=== PATIENT | female | born 1965 | race Caucasian/White ===

== ENCOUNTER 2017-11-30 20:07 | Emergency (ER) | payer MEDICARE, OTHER ==
[2017-11-30] MEDS ORDERED: Ketorolac 60 MG/2 ML SDV IM ONE (20:36)
--- NOTE | 2017-11-30 20:40 | EDM.PDOC ---
ED HPI GENERAL MEDICAL PROBLEM - General Chief Complaint: Back Pain or Injury Stated Complaint: LOWER BACK PAIN Time Seen by Provider: 11/30/17 20:20 Source of Information: Reports: Patient History Limitations: Reports: No Limitations - History of Present Illness INITIAL COMMENTS - FREE TEXT/NARRATIVE: HISTORY AND PHYSICAL: History of present illness: Patient is a 52-year-old female is brought to the emergency room today with complaints of low back pain that radiates down the left lower extremity. She has a long-standing history of chronic back pain which she normally takes [place] for. She does have surgery pending in February 2018. Recently she has been traveling with her who is a diesel truck driver. They are from [place] and up here for work. He has been is doing a "long haul" which will last approximately 3 weeks, before they return to [place]. Patient states that she recently found out her pain management clinic closed. She does have an appointment for December to establish care with a new pain management provider. She denies any new injury, trauma or symptoms. Denies any dysuria or change in bowel pattern. Review of systems: As per history of present illness and below otherwise all systems reviewed and negative. Past medical history: As per history of present illness and as reviewed below otherwise noncontributory. Surgical history: As per history of present illness and as reviewed below otherwise noncontributory. Social history: No reported history of drug or alcohol abuse. Family history: As per history of present illness and as reviewed below otherwise noncontributory. Physical exam: General: Well-developed and well-nourished 52-year-old female. Alert and oriented. Nontoxic appearing and in no acute distress. HEENT: Atraumatic, normocephalic, pupils equal and reactive bilaterally, negative for conjunctival pallor or scleral icterus, mucous membranes moist, throat clear, neck supple, nontender, trachea midline. No drooling or trismus noted. No meningeal signs Lungs: Clear to auscultation, breath sounds equal bilaterally, chest nontender. Heart: S1S2, regular rate and rhythm without overt murmur Abdomen: Soft, nondistended, nontender. Negative for masses or hepatosplenomegaly. Negative for costovertebral tenderness. Pelvis: Stable nontender. Genitourinary: Deferred. Rectal: Deferred. C-spine/Back: No pinpoint vertebral tenderness upon palpation. She denies any urinary or fecal incontinence. Denies any numbness or tingling to her distal extremities. Patient is fully ambulatory without any difficulty or deficits. Skin: Intact, warm, dry. No lesions or rashes noted. Extremities: Atraumatic, moves all extremities per self, negative for cords or calf pain. Neurovascular unremarkable. Neuro: Awake, alert, oriented. Cranial nerves II through XII unremarkable. Cerebellum unremarkable. Motor and sensory unremarkable throughout. Exam nonfocal. Notes: Upon discussing with patient the options of doing diagnostics today she has a copy of recent MRI and discharge instructions from previous clinic visits. Patient does appear credible and has information with her that this from a clinic in [place]. She declines any imaging or lab work today as her symptoms are chronic and have not changed. He discussed muscle relaxer versus what she has been using which is [place]. She is aware and understands that only a limited amount of pain medication may be given through the emergency department. We will give [place] 5/325, dispensed #30, no refill. Voices understanding and is agreeable to Plan of care. Denies any further questions at this time. Diagnostics: Declines Therapeutics: Norflex and Toradol IM Impression: Chronic low back pain Plan: 1. Please take your medication as prescribed. 2. Tylenol and/or ibuprofen as needed for breakthrough pain. 3. For further medication refills please establish care with our primary care clinic. The phone number has been listed for you. Return to the ED as needed and as discussed. Definitive disposition and diagnosis as appropriate pending reevaluation and review of above. Duration: Chronic Location: Reports: Back lower back/right leg Pain Score (Numeric/FACES): 4 - Related Data Allergies Allergy/AdvReac Type Severity Reaction Status Date / Time chlorzoxazone Allergy Swelling Verified 11/30/17 20:27 [From Parafon Forte] Home Meds: Home Meds . 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 Neurological History: Reports: None Psychiatric History: Reports: Bipolar Endocrine/Metabolic History: Reports: Diabetes, Type II Dermatologic History: Reports: None - Infectious Disease History Infectious Disease History: Reports: Chicken Pox, Measles, Mumps - Past Surgical History HEENT Surgical History: Reports: None GI Surgical History: Reports: Appendectomy, Cholecystectomy Female Surgical History: Reports: Tubal Ligation Social & Family History - Tobacco Use Smoking Status *Q: Current Every Day Smoker Years of Tobacco use: 30 Packs/Tins Daily: 1 - Recreational Drug Use Recreational Drug Use: No ED ROS GENERAL - Review of Systems Review Of Systems: ROS reveals no pertinent complaints other than HPI. ED EXAM,LOWER BACK PAIN/INJURY - Physical Exam Exam: See Below (See dictation) Course - Vital Signs Last Recorded V/S: Last Vital Signs Temp 97.1 F 11/30/17 20:27 Pulse 97 11/30/17 20:27 Resp 18 11/30/17 20:27 BP 136/71 11/30/17 20:27 Pulse Ox 96 11/30/17 20:27 - Orders/Labs/Meds Orders: Active Orders 24 hr Category Date Time Status Orphenadrine [Norflex] Med 11/30/17 20:45 Ordered 60 mg IM Q12H Medication Orders Orphenadrine Citrate (Norflex) 60 mg IM Q12H BRANDIE Meds: Medications Generic Name Dose Route Start Last Admin Trade Name Freq PRN Reason Stop Dose Admin Orphenadrine Citrate 60 mg 11/30/17 20:45 Norflex IM Q12H BRANDIE Discontinued Medications Generic Name Dose Route Start Last Admin Trade Name Freq PRN Reason Stop Dose Admin Ketorolac Tromethamine 60 mg 11/30/17 20:36 Toradol IM 11/30/17 20:37 ONETIME ONE Departure - Departure Time of Disposition: 20:40 Disposition: Home, Self-Care 01 Clinical Impression: Chronic low back pain Qualifiers: Back pain laterality: midline Sciatica presence: with sciatica Sciatica laterality: sciatica of left side Qualified Code(s): M54.42 - Lumbago with sciatica, left side - Discharge Information Referrals: PCP,None [Primary Care Provider] - Forms: ED Department Discharge Additional Instructions: The following information is given to patients seen in the emergency department who are being discharged to home. This information is to outline your options for follow-up care. We provide all patients seen in our emergency department with a follow-up referral. The need for follow-up, as well as the timing and circumstances, are variable depending upon the specifics of your emergency department visit. If you don't have a primary care physician on staff, we will provide you with a referral. We always advise you to contact your personal physician following an emergency department visit to inform them of the circumstance of the visit and for follow-up with them and/or the need for any referrals to a consulting specialist. The emergency department will also refer you to a specialist when appropriate. This referral assures that you have the opportunity for follow-up care with a specialist. All of these measure are taken in an effort to provide you with optimal care, which includes your follow-up. Under all circumstances we always encourage you to contact your private physician who remains a resource for coordinating your care. When calling for follow-up care, please make the office aware that this follow-up is from your recent emergency room visit. If for any reason you are refused follow-up, please contact the [facility] Emergency Department at and asked to speak to the emergency department charge nurse. [facility] Primary Care [address] [place] [id number] 1. Please take your medication as prescribed. 2. Tylenol and/or ibuprofen as needed for breakthrough pain. 3. For further medication refills please establish care with our primary care clinic. The phone number has been listed for you. Return to the ED as needed and as discussed. - My Orders Last 24 Hours: My Active Orders 11/30/17 20:45 Orphenadrine [Norflex] 60 mg IM Q12H - Assessment/Plan Last 24 Hours: My Active Orders 11/30/17 20:45 Orphenadrine [Norflex] 60 mg IM Q12H
== END 2017-11-30 21:15 | disposition home or self-care (01) ==
LOC: MW.ED 20:07
DX: G89.29 Other chronic pain (principal); M54.5 Low back pain; E11.9 Type 2 diabetes mellitus without complications; Z88.1 Allergy status to other antibiotic agents
CPT/HCPCS: 96372; 99283; J1885; J2360

== ENCOUNTER 2017-12-04 23:06 | Observation (INO) | payer MEDICARE ==
--- NOTE | 2017-12-05 00:21 | EDM.PDOC ---
ED HPI GENERAL MEDICAL PROBLEM - General Chief Complaint: Abdominal Pain Stated Complaint: WEAK/TOOK TOO MUCH MEDICATION Time Seen by Provider: 12/05/17 00:00 - History of Present Illness INITIAL COMMENTS - FREE TEXT/NARRATIVE: HISTORY AND PHYSICAL: History of present illness: 52-year-old female presented to emergency department with chief complaint of "liver pain" 2 days with past medical history of type 2 diabetes, hyperlipidemia, neuropathy, COPD/asthma, and bipolar disorder. Patient states approximately 2 days [place] and have right upper quadrant pain that she describes as liver pain. She did have some associated nausea and chills but denies any fever, malaise, sore throat, or other signs of systemic infection. She has had both her gallbladder and appendix removed. She also has had a intermittent dry cough which she states is chronic and related to her COPD. She admits to one week of intermittent constipation which may be contributing to her abdominal pain. She denies any dysuria. Review of systems: As per history of present illness and below otherwise all systems reviewed and negative. Past medical history: As per history of present illness and as reviewed below otherwise noncontributory. Surgical history: As per history of present illness and as reviewed below otherwise noncontributory. Social history: No reported history of drug or alcohol abuse. Family history: As per history of present illness and as reviewed below otherwise noncontributory. Physical exam: HEENT: Atraumatic, normocephalic, pupils reactive, negative for conjunctival pallor or scleral icterus, mucous membranes moist, throat clear, neck supple, nontender, trachea midline. Lungs: Clear to auscultation, breath sounds equal bilaterally, chest nontender. Heart: S1S2, regular, negative for clicks, rubs, or JVD. Abdomen: Soft, nondistended, nontender. Negative for masses or hepatosplenomegaly. Negative for costovertebral tenderness. Pelvis: Stable nontender. Genitourinary: Deferred. Rectal: Deferred. Extremities: Atraumatic, negative for cords or calf pain. Neurovascular unremarkable. Neuro: Awake, alert, oriented. Cranial nerves II through XII unremarkable. Cerebellum unremarkable. Motor and sensory unremarkable throughout. Exam nonfocal. Diagnostics: CBC, CMP, UA/UC, Blood culture x2, CT abd/pelvis, CXR Therapeutics: 2 L NS IV, 2 mg IV morphine x2, 1 gram Rocephin Impression: Intractable pain Leukocytosis Plan: CBC revealed a leukocytosis 20,000. This was repeated and was still elevated and normal 17,000. CT abdomen did not reveal any acute [place] for infection but did show moderate constipation. UA, CMP, and chest x-ray were all unremarkable. Secondary to leukocytosis of unknown etiology as well as intractable pain and to call hospitalist Dr. Valiente who accepted patient for observation for leukocytosis and an intractable pain. Definitive disposition and diagnosis as appropriate pending reevaluation and review of above. right upper quadrant abdomen Pain Score (Numeric/FACES): 8 - Related Data Allergies Allergy/AdvReac Type Severity Reaction Status Date / Time chlorzoxazone Allergy Swelling Verified 12/04/17 23:15 [From Jose Daniel Perry] Home Meds: Home Meds ARIPiprazole [Abilify] 1 tab PO DAILY 12/04/17 [History] Citalopram Hydrobromide [Celexa] 1 tab PO DAILY 12/04/17 [History] Gabapentin [Gralise] 1 tab PO TID 12/04/17 [History] Gemfibrozil 1 tab PO BID 12/04/17 [History] Lisinopril 1 tab PO DAILY 12/04/17 [History] Loratadine 1 tab PO DAILY 12/04/17 [History] Montelukast [Singulair] 1 tab PO BEDTIME 12/04/17 [History] OXcarbazepine [Oxcarbazepine] 1 tab PO BID 12/04/17 [History] Pantoprazole [ProTONIX] 1 tab PO DAILY 12/04/17 [History] metFORMIN HCl [Metformin HCl] 1 tab PO BID 12/04/17 [History] tiZANidine [Zanaflex] 1 tab PO TID PRN 12/04/17 [History] Past Medical History HEENT History: Reports: None Cardiovascular History: Reports: High Cholesterol, Hypertension Respiratory History: Reports: COPD Other Musculoskeletal History: 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 Neurological History: Reports: None Psychiatric History: Reports: Bipolar, Depression Endocrine/Metabolic History: Reports: Diabetes, Type II Dermatologic History: Reports: None - Infectious Disease History Infectious Disease History: Reports: Hepatitis C - Past Surgical History HEENT Surgical History: Reports: None GI Surgical History: Reports: Appendectomy, Cholecystectomy Female Surgical History: Reports: Tubal Ligation Social & Family History - Family History Family Medical History: Noncontributory - Tobacco Use Smoking Status *Q: Current Every Day Smoker Years of Tobacco use: 30 Packs/Tins Daily: 1 - Recreational Drug Use Recreational Drug Use: No ED ROS GENERAL - Review of Systems Review Of Systems: See Below ED EXAM, GENERAL - Physical Exam Exam: See Below Course - Vital Signs Last Recorded V/S: Last Vital Signs Temp 98.8 F 12/05/17 04:30 Pulse 94 12/05/17 06:48 Resp 18 12/05/17 06:48 BP 100/50 L 12/05/17 06:48 Pulse Ox 99 12/05/17 04:30 - Orders/Labs/Meds Orders: Active Orders 24 hr Category Date Time Status Abdomen Pelvis wo Cont [CT] Stat Exams 12/05/17 01:33 Taken Chest 2V [CR] Stat Exams 12/05/17 04:41 Taken CULTURE BLOOD [BC] Stat Lab 12/05/17 01:55 Received CULTURE BLOOD [BC] Stat Lab 12/05/17 02:15 Received CULTURE URINE [RM] Stat Lab 12/05/17 00:45 Ordered UA W/MICROSCOPIC [URIN] Stat Lab 12/05/17 00:45 Ordered Sodium Chloride 0.9% [Normal Saline] 1,000 ml Med 12/05/17 05:00 Active IV STAT Blood Culture x2 Reflex Set [OM.PC] Stat Oth 12/05/17 01:33 Ordered Medication Orders Sodium Chloride (Normal Saline) 1,000 mls @ 999 mls/hr IV STAT BRANDIE Last Admin: 12/05/17 04:50 Dose: 999 mls/hr Labs: Laboratory Tests 12/05/17 12/05/17 12/05/17 Range/Units 00:45 01:05 01:05 WBC 20.85 H (4.0-11.0) K/uL RBC 4.65 (4.30-5.90) M/uL Hgb 13.3 (12.0-16.0) g/dL Hct 37.7 (36.0-46.0) % MCV 81.1 (80.0-98.0) fL MCH 28.6 (27.0-32.0) pg MCHC 35.3 (31.0-37.0) g/dL RDW Std Deviation 37.9 (28.0-62.0) fl RDW Coeff of Luis Alfredo 13 (11.0-15.0) % Plt Count 294 (150-400) K/uL MPV 9.80 (7.40-12.00) fL Neut % (Auto) 75.1 (48.0-80.0) % Lymph % (Auto) 15.9 L (16.0-40.0) % [place] % (Auto) 8.3 (0.0-15.0) % Eos % (Auto) 0.5 (0.0-7.0) % Baso % (Auto) 0.2 (0.0-1.5) % Neut # (Auto) 15.7 H (1.4-5.7) K/uL Lymph # (Auto) 3.3 H (0.6-2.4) K/uL [place] # (Auto) 1.7 H (0.0-0.8) K/uL Eos # (Auto) 0.1 (0.0-0.7) K/uL Baso # (Auto) 0.0 (0.0-0.1) K/uL Nucleated RBC % /100WBC Nucleated RBCs # K/uL Lactate (0.20-2.00) mmol/L Sodium 137 (136-145) mmol/L Potassium 4.3 (3.5-5.1) mmol/L Chloride 103 (98-107) mmol/L Carbon Dioxide 22.6 (21.0-32.0) mmol/L BUN 30 H (7.0-18.0) mg/dL Creatinine 1.1 H (0.6-1.0) mg/dL Est Cr Clr Drug Dosing 61.04 mL/min Estimated GFR (MDRD) 52.4 ml/min Glucose 200 H (74-106) mg/dL Calcium 9.1 (8.5-10.1) mg/dL Total Bilirubin 0.3 (0.2-1.0) mg/dL AST 10 L (15-37) IU/L ALT 14 (14-63) IU/L Alkaline Phosphatase 76 (46-116) U/L Total Protein 7.1 (6.4-8.2) g/dL Albumin 3.4 (3.4-5.0) g/dL Globulin 3.7 H (2.0-3.5) g/dL Albumin/Globulin Ratio 0.9 L (1.3-2.8) Urine Color YELLOW Urine Appearance CLEAR Urine pH 6.0 (5.0-8.0) Ur Specific [place] 1.010 (1.001-1.035) Urine Protein NEGATIVE (NEGATIVE) mg/dL Urine Glucose (UA) >=1000 (NEGATIVE) mg/dL Urine Ketones NEGATIVE (NEGATIVE) mg/dL Urine Occult Blood TRACE-LYSED (NEGATIVE) Urine Nitrite NEGATIVE (NEGATIVE) Urine Bilirubin NEGATIVE (NEGATIVE) Urine Urobilinogen 0.2 (<2.0) EU/dL Ur Leukocyte Esterase SMALL (NEGATIVE) Urine RBC 0-1 (0-2/HPF) Urine WBC 1-2 (0-5/HPF) Ur Epithelial Cells OCCASIONAL (NONE-FEW) Urine Bacteria RARE (NEGATIVE) 12/05/17 12/05/17 Range/Units 03:55 03:55 WBC 16.50 H (4.0-11.0) K/uL RBC 4.32 (4.30-5.90) M/uL Hgb 12.3 (12.0-16.0) g/dL Hct 35.1 L (36.0-46.0) % MCV 81.3 (80.0-98.0) fL MCH 28.5 (27.0-32.0) pg MCHC 35.0 (31.0-37.0) g/dL RDW Std Deviation 40.1 (28.0-62.0) fl RDW Coeff of Luis Alfredo 14 (11.0-15.0) % Plt Count 262 (150-400) K/uL MPV 9.50 (7.40-12.00) fL Neut % (Auto) 70.3 (48.0-80.0) % Lymph % (Auto) 20.7 (16.0-40.0) % [place] % (Auto) 8.2 (0.0-15.0) % Eos % (Auto) 0.6 (0.0-7.0) % Baso % (Auto) 0.2 (0.0-1.5) % Neut # (Auto) 11.6 H (1.4-5.7) K/uL Lymph # (Auto) 3.4 H (0.6-2.4) K/uL [place] # (Auto) 1.4 H (0.0-0.8) K/uL Eos # (Auto) 0.1 (0.0-0.7) K/uL Baso # (Auto) 0.0 (0.0-0.1) K/uL Nucleated RBC % 0.0 /100WBC Nucleated RBCs # 0 K/uL Lactate 0.5 (0.20-2.00) mmol/L Sodium (136-145) mmol/L Potassium (3.5-5.1) mmol/L Chloride (98-107) mmol/L Carbon Dioxide (21.0-32.0) mmol/L BUN (7.0-18.0) mg/dL Creatinine (0.6-1.0) mg/dL Est Cr Clr Drug Dosing mL/min Estimated GFR (MDRD) ml/min Glucose (74-106) mg/dL Calcium (8.5-10.1) mg/dL Total Bilirubin (0.2-1.0) mg/dL AST (15-37) IU/L ALT (14-63) IU/L Alkaline Phosphatase (46-116) U/L Total Protein (6.4-8.2) g/dL Albumin (3.4-5.0) g/dL Globulin (2.0-3.5) g/dL Albumin/Globulin Ratio (1.3-2.8) Urine Color Urine Appearance Urine pH (5.0-8.0) Ur Specific [place] (1.001-1.035) Urine Protein (NEGATIVE) mg/dL Urine Glucose (UA) (NEGATIVE) mg/dL Urine Ketones (NEGATIVE) mg/dL Urine Occult Blood (NEGATIVE) Urine Nitrite (NEGATIVE) Urine Bilirubin (NEGATIVE) Urine Urobilinogen (<2.0) EU/dL Ur Leukocyte Esterase (NEGATIVE) Urine RBC (0-2/HPF) Urine WBC (0-5/HPF) Ur Epithelial Cells (NONE-FEW) Urine Bacteria (NEGATIVE) Meds: Medications Generic Name Dose Route Start Last Admin Trade Name Freq PRN Reason Stop Dose Admin Sodium Chloride 1,000 mls @ 999 mls/hr 12/05/17 05:00 12/05/17 04:50 Normal Saline IV 999 mls/hr STAT BRANDIE Administration Discontinued Medications Generic Name Dose Route Start Last Admin Trade Name Freq PRN Reason Stop Dose Admin Sodium Chloride 1,000 mls @ 999 mls/hr 12/05/17 01:33 12/05/17 02:45 Normal Saline IV 12/05/17 02:33 999 mls/hr STAT ONE Administration Ceftriaxone Sodium/Dextrose 1 50 mls @ 100 mls/hr 12/05/17 01:34 12/05/17 02: 49 gm/ Premix IV 12/05/17 02:03 100 mls/hr ONETIME ONE Administration Morphine Sulfate 2 mg 12/05/17 02:48 12/05/17 02:55 Morphine IVPUSH 12/05/17 02:49 2 mg ONETIME ONE Administration Morphine Sulfate 2 mg 12/05/17 04:46 12/05/17 04:59 Morphine IVPUSH 12/05/17 04:47 2 mg ONETIME ONE Administration Morphine Sulfate 2 mg 12/05/17 06:37 12/05/17 06:49 Morphine IVPUSH 12/05/17 06:38 2 mg ONETIME ONE Administration Departure - Departure Time of Disposition: 06:55 Disposition: Admitted As Inpatient 67 Clinical Impression: Intractable pain - Discharge Information Referrals: PCP,None [Primary Care Provider] - Forms: ED Department Discharge - My Orders Last 24 Hours: My Active Orders 12/05/17 00:45 CULTURE URINE [RM] Stat UA W/MICROSCOPIC [URIN] Stat 12/05/17 01:33 Abdomen Pelvis wo Cont [CT] Stat Blood Culture x2 Reflex Set [OM.PC] Stat 12/05/17 01:55 CULTURE BLOOD [BC] Stat 12/05/17 02:15 CULTURE BLOOD [BC] Stat 12/05/17 04:41 Chest 2V [CR] Stat 12/05/17 05:00 Sodium Chloride 0.9% [Normal Saline] 1,000 ml IV STAT - Assessment/Plan Last 24 Hours: My Active Orders 12/05/17 00:45 CULTURE URINE [RM] Stat UA W/MICROSCOPIC [URIN] Stat 12/05/17 01:33 Abdomen Pelvis wo Cont [CT] Stat Blood Culture x2 Reflex Set [OM.PC] Stat 12/05/17 01:55 CULTURE BLOOD [BC] Stat 12/05/17 02:15 CULTURE BLOOD [BC] Stat 12/05/17 04:41 Chest 2V [CR] Stat 12/05/17 05:00 Sodium Chloride 0.9% [Normal Saline] 1,000 ml IV STAT
[2017-12-05] MEDS ORDERED: Sodium Chloride 0.9% 1,000 ML IV ONE (01:33)
[2017-12-05] MEDS ORDERED: cefTRIAXone 1 GM in Premix Bag 1 BAG IV ONE (01:34)
--- NOTE | 2017-12-05 02:44 | PCM.PRNOTE ---
- Free Text/Narrative Note: In to evaluate patient for IV access at this time. Pt with multiple scar tissue areas in arms and prior central line access in neck area. 20 g PIV inserted in right Ankle under sterile technique. Pt explained risks associated with this and consented to IV. Sterile dressing applied and saline locked at this time.
[2017-12-05] MEDS ORDERED: Morphine 2 MG/ML Syringe IVPUSH ONE ×4 (02:48→08:02)
[2017-12-05] MEDS ORDERED: Sodium Chloride 0.9% 1,000 ML IV SCH (05:00)
--- NOTE | 2017-12-05 08:27 | PCM.HP ---
H&P History of Present Illness - General Date of Service: 12/05/17 Admit Problem/Dx: Admission Diagnosis/Problem Admission Diagnosis/Problem Abdominal pain Source of Information: Patient History Limitations: Reports: No Limitations - History of Present Illness Initial Comments - Free Text/Narative: This 52 year old female with pmh of DM type 2, R sciatica pain, COPD and bipolar presented to the ED this morning with complaints of R sided sharp shooting constant abdominal pain. She reports she has had increased pain to her R sciatica and was seen in the ED on 11/30 for this and was given Norflex and Hardy. She reports she is here traveling with her for 4 weeks and then will be back in [place] for 1 week. She reports her pain management doctor was changed and she has a new Dr but has not seen them yet and has appointment on December 26. She reports she also is awaiting surgery with neurosurgeon to help with R sciatica, but needs to control her BS better. She reports when she left [place] 1 week ago she was constipated, had a very hard small stool a few days ago and a small loose stool yesterday. She reports she has not been drinking much liquids over the last couple days. She denies fevers at home, but has had some chills and hot flashes intermittently. She denies cough, chest pain, shortness of breath, urinary symptoms, black or bloody BMs. No other recent bowel habit changes. She denies being on bowel regimen while taking pain medications. In the ED leukocytosis noted at 20,0000, repeate after IVFs 16,500. VS stable. BUN 30 Cr 1.1, unclear baseline. Glucose 200, Lactate 0.5, LFTS WNL ua negative. UC and BC obtained. CXR negative. Abd/pelvi CT revealed moderate stool throughout large bowel no free air or fluid, no acute findings within abdomen. She was treated with IVFs, and Morphine for pain. She will be admitted observation for leukocytosis and abdominal pain. Has hx of appendectomy and cholecystectomy. right upper quadrant abdomen Pain Score (Numeric/FACES): 8 - Related Data Allergies/Adverse Reactions: Allergies Allergy/AdvReac Type Severity Reaction Status Date / Time chlorzoxazone Allergy Swelling Verified 12/04/17 23:15 [From Paraxavin Vicky] Home Medications: Home Meds ARIPiprazole [Abilify] 15 mg PO DAILY 12/04/17 [History] Citalopram Hydrobromide [Celexa] 40 mg PO DAILY 12/04/17 [History] Gabapentin [Gralise] 600 mg PO TID 12/04/17 [History] Gemfibrozil 600 mg PO BID 12/04/17 [History] Lisinopril 2.5 mg PO DAILY 12/04/17 [History] Loratadine 10 mg PO DAILY 12/04/17 [History] Montelukast [Singulair] 10 mg PO BEDTIME 12/04/17 [History] OXcarbazepine [Oxcarbazepine] 300 mg PO BID 12/04/17 [History] Pantoprazole [ProTONIX] 40 mg PO DAILY 12/04/17 [History] metFORMIN HCl [Metformin HCl] 1,000 mg PO BID 12/04/17 [History] tiZANidine [Zanaflex] 4 mg PO TID PRN 12/04/17 [History] Amitriptyline [Elavil] 50 mg PO BEDTIME 12/05/17 [History] Insulin Glargine/Lixisenatide [Soliqua 100 Unit-33 Mcg/ml Pen] 12/05/17 [ History] hydrOXYzine Pamoate [Hydroxyzine Pamoate] 25 mg PO TID PRN 12/05/17 [History] Past Medical History HEENT History: Reports: None Cardiovascular History: Reports: High Cholesterol. Denies: Afib, Blood Clots/ VTE/DVT, CAD, Hypertension, ND Respiratory History: Reports: COPD Gastrointestinal History: Reports: GERD Genitourinary History: Reports: None. 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 Denies: CVA, TIA Psychiatric History: Reports: Bipolar, Depression Endocrine/Metabolic History: Reports: Diabetes, Type II Dermatologic History: Reports: None - Infectious Disease History Infectious Disease History: Reports: Hepatitis C - Past Surgical History HEENT Surgical History: Reports: None GI Surgical History: Reports: Appendectomy, Cholecystectomy Female Surgical History: Reports: Tubal Ligation Social & Family History - Family History Family Medical History: Noncontributory - Tobacco Use Smoking Status *Q: Current Every Day Smoker Years of Tobacco use: 30 Packs/Tins Daily: 1 - Alcohol Use Alcohol Use History: No Alcohol Use Frequency: Rarely, Socially - Recreational Drug Use Recreational Drug Use: No - Living Situation & Occupation Living situation: Reports: Occupation: Unemployed H&P Review of Systems - Review of Systems: Review Of Systems: See Below General: Reports: Chills, Malaise. Denies: Fever, Decreased Appetite HEENT: Reports: No Symptoms. Denies: Headaches, Sinus Congestion, Sore Throat Pulmonary: Reports: No Symptoms. Denies: Shortness of Breath, Cough, Sputum Cardiovascular: Reports: No Symptoms. Denies: Chest Pain, Edema, Lightheadedness Gastrointestinal: Reports: Abdominal Pain (R quadrant), Constipation. Denies: Black Stool, Bloody Stool, Decreased Appetite, Nausea, Vomiting Genitourinary: Reports: No Symptoms. Denies: Dysuria, Frequency, Burning, Pain Musculoskeletal: Reports: Back Pain (chronic, with R sided sciatica.) Skin: Reports: No Symptoms Psychiatric: Reports: No Symptoms Neurological: Reports: No Symptoms Hematologic/Lymphatic: Reports: No Symptoms Immunologic: Reports: No Symptoms Exam - Exam Exam: See Below - Vital Signs Vital Signs: Last Vital Signs Temp 98.8 F 12/05/17 04:30 Pulse 92 12/05/17 07:26 Resp 18 12/05/17 07:26 BP 101/74 12/05/17 07:26 Pulse Ox 94 L 12/05/17 07:26 Weight: 82 kg - Exam General: Alert, Oriented, Cooperative HEENT: Conjunctiva Clear, Mucosa Moist & [place], Nares Patent, Posterior Pharynx Clear Neck: Supple, Trachea Midline, 2 Lungs: Clear to Auscultation, Normal Respiratory Effort Cardiovascular: Regular Rate, Regular Rhythm GI/Abdominal Exam: Normal Bowel Sounds, Soft, Distended, Tender (diffusely, but noted mainly to R quadrant. ) Back Exam: Normal Inspection, Full Range of Motion, NT Extremities: Normal Inspection, Normal Range of Motion, Non-Tender, No Pedal Edema, Normal Capillary Refill Neuro Extensive - Mental Status: Alert, Oriented x3, Normal Mood/Affect Neuro Extensive - Motor, Sensory, Reflexes: CN II-XII Intact, Normal Gait, Normal Reflexes Psychiatric: Alert, Normal Affect, Normal Mood - Patient Data Lab Results Last 24 hrs: Laboratory Results - last 24 hr 12/05/17 12/05/17 12/05/17 Range/Units 00:45 01:05 01:05 WBC 20.85 H (4.0-11.0) K/uL RBC 4.65 (4.30-5.90) M/uL Hgb 13.3 (12.0-16.0) g/dL Hct 37.7 (36.0-46.0) % MCV 81.1 (80.0-98.0) fL MCH 28.6 (27.0-32.0) pg MCHC 35.3 (31.0-37.0) g/dL RDW Std Deviation 37.9 (28.0-62.0) fl RDW Coeff of Luis Alfredo 13 (11.0-15.0) % Plt Count 294 (150-400) K/uL MPV 9.80 (7.40-12.00) fL Neut % (Auto) 75.1 (48.0-80.0) % Lymph % (Auto) 15.9 L (16.0-40.0) % Brooke % (Auto) 8.3 (0.0-15.0) % Eos % (Auto) 0.5 (0.0-7.0) % Baso % (Auto) 0.2 (0.0-1.5) % Neut # (Auto) 15.7 H (1.4-5.7) K/uL Lymph # (Auto) 3.3 H (0.6-2.4) K/uL Brooke # (Auto) 1.7 H (0.0-0.8) K/uL Eos # (Auto) 0.1 (0.0-0.7) K/uL Baso # (Auto) 0.0 (0.0-0.1) K/uL Nucleated RBC % /100WBC Nucleated RBCs # K/uL Lactate (0.20-2.00) mmol/L Sodium 137 (136-145) mmol/L Potassium 4.3 (3.5-5.1) mmol/L Chloride 103 (98-107) mmol/L Carbon Dioxide 22.6 (21.0-32.0) mmol/L BUN 30 H (7.0-18.0) mg/dL Creatinine 1.1 H (0.6-1.0) mg/dL Est Cr Clr Drug Dosing 61.04 mL/min Estimated GFR (MDRD) 52.4 ml/min Glucose 200 H (74-106) mg/dL Calcium 9.1 (8.5-10.1) mg/dL Total Bilirubin 0.3 (0.2-1.0) mg/dL AST 10 L (15-37) IU/L ALT 14 (14-63) IU/L Alkaline Phosphatase 76 (46-116) U/L Total Protein 7.1 (6.4-8.2) g/dL Albumin 3.4 (3.4-5.0) g/dL Globulin 3.7 H (2.0-3.5) g/dL Albumin/Globulin Ratio 0.9 L (1.3-2.8) Urine Color YELLOW Urine Appearance CLEAR Urine pH 6.0 (5.0-8.0) Ur Specific [place] 1.010 (1.001-1.035) Urine Protein NEGATIVE (NEGATIVE) mg/dL Urine Glucose (UA) >=1000 (NEGATIVE) mg/dL Urine Ketones NEGATIVE (NEGATIVE) mg/dL Urine Occult Blood TRACE-LYSED (NEGATIVE) Urine Nitrite NEGATIVE (NEGATIVE) Urine Bilirubin NEGATIVE (NEGATIVE) Urine Urobilinogen 0.2 (<2.0) EU/dL Ur Leukocyte Esterase SMALL (NEGATIVE) Urine RBC 0-1 (0-2/HPF) Urine WBC 1-2 (0-5/HPF) Ur Epithelial Cells OCCASIONAL (NONE-FEW) Urine Bacteria RARE (NEGATIVE) 12/05/17 12/05/17 Range/Units 03:55 03:55 WBC 16.50 H (4.0-11.0) K/uL RBC 4.32 (4.30-5.90) M/uL Hgb 12.3 (12.0-16.0) g/dL Hct 35.1 L (36.0-46.0) % MCV 81.3 (80.0-98.0) fL MCH 28.5 (27.0-32.0) pg MCHC 35.0 (31.0-37.0) g/dL RDW Std Deviation 40.1 (28.0-62.0) fl RDW Coeff of Luis Alfredo 14 (11.0-15.0) % Plt Count 262 (150-400) K/uL MPV 9.50 (7.40-12.00) fL Neut % (Auto) 70.3 (48.0-80.0) % Lymph % (Auto) 20.7 (16.0-40.0) % Brooke % (Auto) 8.2 (0.0-15.0) % Eos % (Auto) 0.6 (0.0-7.0) % Baso % (Auto) 0.2 (0.0-1.5) % Neut # (Auto) 11.6 H (1.4-5.7) K/uL Lymph # (Auto) 3.4 H (0.6-2.4) K/uL Brooke # (Auto) 1.4 H (0.0-0.8) K/uL Eos # (Auto) 0.1 (0.0-0.7) K/uL Baso # (Auto) 0.0 (0.0-0.1) K/uL Nucleated RBC % 0.0 /100WBC Nucleated RBCs # 0 K/uL Lactate 0.5 (0.20-2.00) mmol/L Sodium (136-145) mmol/L Potassium (3.5-5.1) mmol/L Chloride (98-107) mmol/L Carbon Dioxide (21.0-32.0) mmol/L BUN (7.0-18.0) mg/dL Creatinine (0.6-1.0) mg/dL Est Cr Clr Drug Dosing mL/min Estimated GFR (MDRD) ml/min Glucose (74-106) mg/dL Calcium (8.5-10.1) mg/dL Total Bilirubin (0.2-1.0) mg/dL AST (15-37) IU/L ALT (14-63) IU/L Alkaline Phosphatase (46-116) U/L Total Protein (6.4-8.2) g/dL Albumin (3.4-5.0) g/dL Globulin (2.0-3.5) g/dL Albumin/Globulin Ratio (1.3-2.8) Urine Color Urine Appearance Urine pH (5.0-8.0) Ur Specific Hastings (1.001-1.035) Urine Protein (NEGATIVE) mg/dL Urine Glucose (UA) (NEGATIVE) mg/dL Urine Ketones (NEGATIVE) mg/dL Urine Occult Blood (NEGATIVE) Urine Nitrite (NEGATIVE) Urine Bilirubin (NEGATIVE) Urine Urobilinogen (<2.0) EU/dL Ur Leukocyte Esterase (NEGATIVE) Urine RBC (0-2/HPF) Urine WBC (0-5/HPF) Ur Epithelial Cells (NONE-FEW) Urine Bacteria (NEGATIVE) Result Diagrams: 12/05/17 03:55 12/05/17 01:05 - Problem List (1) Abdominal pain SNOMED Code(s): 62151018 ICD Code: R10.9 - UNSPECIFIED ABDOMINAL PAIN Status: Acute Current Visit : Yes Qualifiers: Abdominal location: right upper quadrant Qualified Code(s): R10.11 - Right upper quadrant pain (2) Constipation SNOMED Code(s): 58018108 ICD Code: K59.00 - CONSTIPATION, UNSPECIFIED Status: Acute Current Visit : Yes Qualifiers: Constipation type: drug induced constipation Qualified Code(s): K59.03 - Drug induced constipation (3) Leukocytosis SNOMED Code(s): 833350232, 838421756 ICD Code: D72.829 - ELEVATED WHITE BLOOD CELL COUNT, UNSPECIFIED Status: Acute Current Visit: Yes (4) DENISE (acute kidney injury) SNOMED Code(s): 46713202 ICD Code: N17.9 - ACUTE KIDNEY FAILURE, UNSPECIFIED Status: Acute Current Visit: Yes (5) DM type 2 (diabetes mellitus, type 2) SNOMED Code(s): 07722779 ICD Code: E11.9 - TYPE 2 DIABETES MELLITUS WITHOUT COMPLICATIONS Status: Chronic Current Visit: Yes Qualifiers: Diabetes mellitus alf insulin use: with alf use Diabetes mellitus complication status: without complication Qualified Code(s): E11.9 - Type 2 diabetes mellitus without complications; Z79.4 - dedicated intermodal truck driver (current) use of insulin (6) COPD (chronic obstructive pulmonary disease) SNOMED Code(s): 69659447 ICD Code: J44.9 - CHRONIC OBSTRUCTIVE PULMONARY DISEASE, UNSPECIFIED Status : Chronic Current Visit: Yes Qualifiers: COPD type: unspecified COPD Qualified Code(s): J44.9 - Chronic obstructive pulmonary disease, unspecified (7) Bipolar 1 disorder, depressed Status: Chronic Current Visit: Yes (8) Hx of hepatitis C SNOMED Code(s): 90926165711229, 66213576611010 ICD Code: Z86.19 - PERSONAL HISTORY OF OTHER INFECTIOUS AND PARASITIC DISEASES Status: Acute Current Visit: Yes (9) Chronic low back pain SNOMED Code(s): 683279557 ICD Code: M54.5 - LOW BACK PAIN; G89.29 - OTHER CHRONIC PAIN Status: Chronic Current Visit: No Qualifiers: Back pain laterality: midline Sciatica presence: with sciatica Sciatica laterality: sciatica of right side Qualified Code(s): M54.41 - Lumbago with sciatica, right side; G89.29 - Other chronic pain Problem List Initiated/Reviewed/Updated: Yes Orders Last 24hrs: Active Orders 24 hr Category Date Time Status Patient Status [ADT] Stat ADT 12/05/17 07:28 Active Abdomen Pelvis wo Cont [CT] Stat Exams 12/05/17 01:33 Taken Chest 2V [CR] Stat Exams 12/05/17 04:41 Taken CULTURE BLOOD [BC] Stat Lab 12/05/17 01:55 Received CULTURE BLOOD [BC] Stat Lab 12/05/17 02:15 Received CULTURE URINE [RM] Stat Lab 12/05/17 00:45 Ordered UA W/MICROSCOPIC [URIN] Stat Lab 12/05/17 00:45 Ordered Sodium Chloride 0.9% [Normal Saline] 1,000 ml Med 12/05/17 05:00 Active IV STAT Blood Culture x2 Reflex Set [OM.PC] Stat Oth 12/05/17 01:33 Ordered Medication Orders Sodium Chloride (Normal Saline) 1,000 mls @ 999 mls/hr IV STAT BRANDIE Last Admin: 12/05/17 04:50 Dose: 999 mls/hr Assessment/Plan Comment:: This 52 year old female admitted with abdominal pain, constipation and leukocytosis 1. Abdominal pain/constipation: No acute findings on CT. Constipation noted, likely due to dehydration and narcotic use. Will hold narcotics. Continue home pain medications for now only. Dulcolax and enema and monitor pain and BMs. 2. Leukocytosis: No acute findings for infection. Given Rocephin in the ED, cultures pending. Maybe related to dehydration. VS stable. No recent use of steroids. 3. Dehydration: IVFs, NS 125 for now. monitor BMP in am to evaluate renal function. 4. Dm type 2: Hold PO medications. Novolog SSI TIDAC. Monitor. 5. COPD: Stable. Continue inhalers PRN. 6. Chronic back pain: May be source of pain? Continue home medications for now, Norflex and Gabapentin. Again, holding narcotics. Patient appeared comfortable upon assessment. 7: Bipolar: Stable, continue medications. VTE prophylaxis: Lovenox Dispo: 1-2 days pending improvement and bowel movements.
[2017-12-05] MEDS ORDERED: Bisacodyl 10 MG Supp RECTAL ONE (09:03)
[2017-12-05] MEDS ORDERED: Acetaminophen 325 MG Tab PO PRN (09:05)
[2017-12-05] MEDS ORDERED: tiZANidine 4 MG Tab PO PRN (09:08)
[2017-12-05] MEDS: Sodium Chloride 0.9% 1,000 ML IV SCH ×2 (09:14→18:14)
[2017-12-05] MEDS ORDERED: Enoxaparin 40 MG/0.4 ML Syringe SUBCUT SCH (09:15)
[2017-12-05] MEDS ORDERED: Citalopram 20 MG Tab PO SCH (09:15)
[2017-12-05] MEDS ORDERED: Loratadine 10 MG Tab PO SCH (09:15)
[2017-12-05] MEDS ORDERED: ARIPiprazole 10 MG Tab PO SCH (09:15)
[2017-12-05] MEDS: OXcarbazepine 300 MG Tab PO SCH ×2 (10:32→21:35)
[2017-12-05] MEDS: Gemfibrozil 600 MG Tab PO SCH ×2 (10:32→21:34)
[2017-12-05] MEDS: Pantoprazole 40 MG Tab.CR PO SCH (10:32)
[2017-12-05] MEDS ORDERED: hydrOXYzine Pamoate 25 MG Cap PO PRN (11:13)
[2017-12-05] MEDS: Insulin Aspart 100 Units/ML 3 ML Pen SUBCUT SCH ×2 (12:32→17:18)
[2017-12-05] MEDS: Gabapentin 300 MG Cap PO SCH ×2 (13:51→21:35)
[2017-12-05] MEDS ORDERED: Montelukast 10 MG Tab PO SCH (21:00)
[2017-12-06 05:21] LABS: CHLORIDE,CL 101 mmol/L (98-107); SODIUM,NA 137 mmol/L (136-145)
[2017-12-06] MEDS: Pantoprazole 40 MG Tab.CR PO SCH (06:34)
[2017-12-06] MEDS: Gabapentin 300 MG Cap PO SCH (06:34)
[2017-12-06] MEDS: Insulin Aspart 100 Units/ML 3 ML Pen SUBCUT SCH (07:22)
--- NOTE | 2017-12-06 07:37 | PCM.DCSUM1 ---
Discharge Summary - Hospital Course Brief History: This 52 year old female with pmh of DM type 2, R sciatica pain, COPD and bipolar presented to the ED this morning with complaints of R sided sharp shooting constant abdominal pain. She reports she has had increased pain to her R sciatica and was seen in the ED on 11/30 for this and was given Norflex and [place]. She reports she is here traveling with her for 4 weeks and then will be back in [place] for 1 week. She reports her pain management doctor was changed and she has a new Dr but has not seen them yet and has appointment on December 26. She reports she also is awaiting surgery with neurosurgeon to help with R sciatica, but needs to control her BS better. She reports when she left [place] 1 week ago she was constipated, had a very hard small stool a few days ago and a small loose stool yesterday. She reports she has not been drinking much liquids over the last couple days. She denies fevers at home, but has had some chills and hot flashes intermittently. She denies cough, chest pain, shortness of breath, urinary symptoms, black or bloody BMs. No other recent bowel habit changes. She denies being on bowel regimen while taking pain medications. In the ED leukocytosis noted at 20,0000, repeate after IVFs 16,500. VS stable. BUN 30 Cr 1.1, unclear baseline. Glucose 200, Lactate 0.5, LFTS WNL ua negative. UC and BC obtained. CXR negative. Abd/pelvi CT revealed moderate stool throughout large bowel no free air or fluid, no acute findings within abdomen. She was treated with IVFs, and Morphine for pain. She will be admitted observation for leukocytosis and abdominal pain. Has hx of appendectomy and cholecystectomy. - Discharge Data Discharge Date: 12/06/17 Discharge Disposition: Home, Self-Care 01 Condition: Good - Discharge Diagnosis/Problem(s) (1) Abdominal pain SNOMED Code(s): 11984104 ICD Code: R10.9 - UNSPECIFIED ABDOMINAL PAIN Status: Acute Current Visit : Yes Qualifiers: Abdominal location: right upper quadrant Qualified Code(s): R10.11 - Right upper quadrant pain (2) Constipation SNOMED Code(s): 40046706 ICD Code: K59.00 - CONSTIPATION, UNSPECIFIED Status: Acute Current Visit : Yes Qualifiers: Constipation type: drug induced constipation Qualified Code(s): K59.03 - Drug induced constipation (3) Leukocytosis SNOMED Code(s): 866398837, 826472301 ICD Code: D72.829 - ELEVATED WHITE BLOOD CELL COUNT, UNSPECIFIED Status: Acute Current Visit: Yes (4) DENISE (acute kidney injury) SNOMED Code(s): 70017425 ICD Code: N17.9 - ACUTE KIDNEY FAILURE, UNSPECIFIED Status: Acute Current Visit: Yes (5) DM type 2 (diabetes mellitus, type 2) SNOMED Code(s): 19057316 ICD Code: E11.9 - TYPE 2 DIABETES MELLITUS WITHOUT COMPLICATIONS Status: Chronic Current Visit: Yes Qualifiers: Diabetes mellitus superintendent container terminal insulin use: with superintendent container terminal use Diabetes mellitus complication status: without complication Qualified Code(s): E11.9 - Type 2 diabetes mellitus without complications; Z79.4 - intermodal customer service (current) use of insulin (6) COPD (chronic obstructive pulmonary disease) SNOMED Code(s): 25851019 ICD Code: J44.9 - CHRONIC OBSTRUCTIVE PULMONARY DISEASE, UNSPECIFIED Status : Chronic Current Visit: Yes Qualifiers: COPD type: unspecified COPD Qualified Code(s): J44.9 - Chronic obstructive pulmonary disease, unspecified (7) Bipolar 1 disorder, depressed Status: Chronic Current Visit: Yes (8) Hx of hepatitis C SNOMED Code(s): 37567623785499, 48145486882031 ICD Code: Z86.19 - PERSONAL HISTORY OF OTHER INFECTIOUS AND PARASITIC DISEASES Status: Acute Current Visit: Yes (9) Chronic low back pain SNOMED Code(s): 965108404 ICD Code: M54.5 - LOW BACK PAIN; G89.29 - OTHER CHRONIC PAIN Status: Chronic Current Visit: No Qualifiers: Back pain laterality: midline Sciatica presence: with sciatica Sciatica laterality: sciatica of right side Qualified Code(s): M54.41 - Lumbago with sciatica, right side; G89.29 - Other chronic pain - Patient Instructions Diet: Diabetic Diet Activity: As Tolerated, No Strenuous Activities Driving: Do Not Drive Showering/Bathing: May Shower Notify Provider of: Fever, Increased Pain, Swelling and Redness, Drainage, Nausea and/or Vomiting - Discharge Plan Prescriptions/Med Rec: Docusate Sodium [Colace] 100 mg PO DAILY #60 capsule Home Medications: Home Meds ARIPiprazole [Abilify] 15 mg PO DAILY 12/04/17 [History] Citalopram Hydrobromide [Celexa] 40 mg PO DAILY 12/04/17 [History] Gabapentin [Gralise] 600 mg PO TID 12/04/17 [History] Gemfibrozil 600 mg PO BID 12/04/17 [History] Lisinopril 2.5 mg PO DAILY 12/04/17 [History] Loratadine 10 mg PO DAILY 12/04/17 [History] Montelukast [Singulair] 10 mg PO BEDTIME 12/04/17 [History] OXcarbazepine [Oxcarbazepine] 300 mg PO BID 12/04/17 [History] Pantoprazole [ProTONIX] 40 mg PO DAILY 12/04/17 [History] metFORMIN HCl [Metformin HCl] 1,000 mg PO BID 12/04/17 [History] tiZANidine [Zanaflex] 4 mg PO TID PRN 12/04/17 [History] Amitriptyline [Elavil] 50 mg PO BEDTIME 12/05/17 [History] Insulin Glargine/Lixisenatide [[place] 100 Unit-33 Mcg/ml Pen] 12/05/17 [ History] hydrOXYzine Pamoate [Hydroxyzine Pamoate] 25 mg PO TID PRN 12/05/17 [History] Docusate Sodium [Colace] 100 mg PO DAILY #60 capsule 12/06/17 [Rx] Patient Handouts: Docusate capsules - Discharge Summary/Plan Comment DC Time >30 min.: No Discharge Summary/Plan Comment: Discharge Diagnoses: Constipation Dehydration Abdominal pain-resolved. DM type 2 Chronic low back pain Bipolar Depression Hx Hepatitis C Tanya was admitted and treated with IVFs for dehydration and constipation. She was given Dulcolax suppository and Enema yesterday, which resulted in 5-6 large BMs. Pain last night was much better. She is eating and drinking well. No concerns. Leukocytosis resolved, likely secondary to dehydration. BC negative x 1 day. Today she is very eager to be discharged home. She will follow up at home in [place] when she returns. She declines follow up here in [place]. She was encouraged to remain hydrated with good water intake. She was also encouraged to take Colace daily with all constipating medications. She was encouraged to return to the ED or clinic if concerns should arise. - General Info Date of Service: 12/06/17 Admission Dx/Problem (Free Text: Admission Diagnosis/Problem Admission Diagnosis/Problem Abdominal pain Subjective Update: Walking in room. Asking to be discharged home. should be here soon. No chest pain, shortness of breath, or abdominal pain. passing flatus and BMs. Abdominal pain better. No other concerns. Functional Status: Reports: Pain Controlled, Tolerating Diet, Ambulating, Urinating - Review of Systems General: Reports: No Symptoms. Denies: Fever, Weakness, Fatigue HEENT: Reports: No Symptoms. Denies: Headaches, Sore Throat, Rhinitis Pulmonary: Reports: No Symptoms. Denies: Shortness of Breath Cardiovascular: Reports: No Symptoms. Denies: Chest Pain Gastrointestinal: Reports: No Symptoms. Denies: Abdominal Pain, Nausea, Vomiting Genitourinary: Reports: No Symptoms. Denies: Dysuria, Frequency, Burning Musculoskeletal: Reports: No Symptoms Skin: Reports: No Symptoms Neurological: Reports: No Symptoms Psychiatric: Reports: No Symptoms - Patient Data Vitals - Most Recent: Last Vital Signs Temp 98.4 F 12/06/17 02:59 Pulse 77 12/06/17 02:59 Resp 18 12/06/17 02:59 BP 114/68 12/06/17 02:59 Pulse Ox 97 12/06/17 02:59 Weight - Most Recent: 82 kg I&O - Last 24 hours: Intake & Output 12/05/17 12/06/17 12/06/17 22:59 06:59 14:59 Intake Total 680 Output Total 1540 Balance -860 Lab Results - Last 24 hrs: Laboratory Results - last 24 hr 12/05/17 12/05/17 12/06/17 Range/Units 11:26 17:11 04:45 WBC 9.34 (4.0-11.0) K/uL RBC 4.61 (4.30-5.90) M/uL Hgb 13.0 (12.0-16.0) g/dL Hct 37.9 (36.0-46.0) % MCV 82.2 (80.0-98.0) fL MCH 28.2 (27.0-32.0) pg MCHC 34.3 (31.0-37.0) g/dL RDW Std Deviation 40.5 (28.0-62.0) fl RDW Coeff of Luis Alfredo 14 (11.0-15.0) % Plt Count 245 (150-400) K/uL MPV 10.20 (7.40-12.00) fL Neut % (Auto) 63.1 (48.0-80.0) % Lymph % (Auto) 25.8 (16.0-40.0) % [place] % (Auto) 8.1 (0.0-15.0) % Eos % (Auto) 2.5 (0.0-7.0) % Baso % (Auto) 0.5 (0.0-1.5) % Neut # (Auto) 5.9 H (1.4-5.7) K/uL Lymph # (Auto) 2.4 (0.6-2.4) K/uL [place] # (Auto) 0.8 (0.0-0.8) K/uL Eos # (Auto) 0.2 (0.0-0.7) K/uL Baso # (Auto) 0.1 (0.0-0.1) K/uL Nucleated RBC % 0.0 /100WBC Nucleated RBCs # 0 K/uL Sodium (136-145) mmol/L Potassium (3.5-5.1) mmol/L Chloride (98-107) mmol/L Carbon Dioxide (21.0-32.0) mmol/L BUN (7.0-18.0) mg/dL Creatinine (0.6-1.0) mg/dL Est Cr Clr Drug Dosing mL/min Estimated GFR (MDRD) ml/min Glucose (74-106) mg/dL POC Glucose 190 H 291 H (60-110) mg/dL Calcium (8.5-10.1) mg/dL 12/06/17 12/06/17 Range/Units 04:45 06:31 WBC (4.0-11.0) K/uL RBC (4.30-5.90) M/uL Hgb (12.0-16.0) g/dL Hct (36.0-46.0) % MCV (80.0-98.0) fL MCH (27.0-32.0) pg MCHC (31.0-37.0) g/dL RDW Std Deviation (28.0-62.0) fl RDW Coeff of Luis Alfredo (11.0-15.0) % Plt Count (150-400) K/uL MPV (7.40-12.00) fL Neut % (Auto) (48.0-80.0) % Lymph % (Auto) (16.0-40.0) % [place] % (Auto) (0.0-15.0) % Eos % (Auto) (0.0-7.0) % Baso % (Auto) (0.0-1.5) % Neut # (Auto) (1.4-5.7) K/uL Lymph # (Auto) (0.6-2.4) K/uL [place] # (Auto) (0.0-0.8) K/uL Eos # (Auto) (0.0-0.7) K/uL Baso # (Auto) (0.0-0.1) K/uL Nucleated RBC % /100WBC Nucleated RBCs # K/uL Sodium 137 (136-145) mmol/L Potassium 5.1 (3.5-5.1) mmol/L Chloride 101 (98-107) mmol/L Carbon Dioxide 24.2 (21.0-32.0) mmol/L BUN 26 H (7.0-18.0) mg/dL Creatinine 0.9 (0.6-1.0) mg/dL Est Cr Clr Drug Dosing 74.60 mL/min Estimated GFR (MDRD) > 60.0 ml/min Glucose 308 H (74-106) mg/dL POC Glucose 281 H (60-110) mg/dL Calcium 9.1 (8.5-10.1) mg/dL LAURA Results - Last 24 hrs: Microbiology 12/05/17 02:15 Aerobic Blood Culture - Preliminary Blood - Venous - Lab Draw NO GROWTH AFTER 1 DAY Anaerobic Blood Culture - Preliminary NO GROWTH AFTER 1 DAY 12/05/17 01:55 Aerobic Blood Culture - Preliminary Blood - Venous NO GROWTH AFTER 1 DAY Anaerobic Blood Culture - Preliminary NO GROWTH AFTER 1 DAY Med Orders - Current: Current Medications Acetaminophen (Tylenol) 650 mg PO Q4H PRN PRN Reason: Pain (mild 1-3) Aripiprazole (Abilify) 15 mg PO DAILY [facility] Last Admin: 12/05/17 10:32 Dose: 15 mg Citalopram Hydrobromide (Celexa) 40 mg PO DAILY [facility] Last Admin: 12/05/17 10:32 Dose: 40 mg Enoxaparin Sodium (Lovenox) 40 mg SUBCUT Q24H [facility] Last Admin: 12/05/17 09:23 Dose: 40 mg Gabapentin (Neurontin) 600 mg PO TID [facility] Last Admin: 12/06/17 06:34 Dose: 600 mg Gemfibrozil (Lopid) 600 mg PO BID [facility] Last Admin: 12/05/17 21:34 Dose: 600 mg Hydroxyzine Pamoate (Vistaril) 25 mg PO TID PRN PRN Reason: Anxiety Last Admin: 12/05/17 23:09 Dose: 25 mg Insulin Aspart (Novolog) 0 unit SUBCUT TIDAC [facility]; Protocol Last Admin: 12/06/17 07:22 Dose: 6 units Loratadine (Claritin) 10 mg PO DAILY [facility] Last Admin: 12/05/17 10:32 Dose: 10 mg Montelukast Sodium (Singulair) 10 mg PO BEDTIME [facility] Last Admin: 12/05/17 21:34 Dose: 10 mg Oxcarbazepine (Trileptal) 300 mg PO BID [facility] Last Admin: 12/05/17 21:35 Dose: 300 mg Pantoprazole Sodium (Protonix) 40 mg PO ACBREAKFAST [facility] Last Admin: 12/06/17 06:34 Dose: 40 mg Tizanidine HCl (Zanaflex) 4 mg PO TID PRN PRN Reason: Pain Discontinued Medications Bisacodyl (Dulcolax) 10 mg RECTAL ONETIME ONE Stop: 12/05/17 09:04 Last Admin: 12/05/17 09:23 Dose: 10 mg Sodium Chloride (Normal Saline) 1,000 mls @ 999 mls/hr IV STAT ONE Stop: 12/05/17 02:33 Last Admin: 12/05/17 02:45 Dose: 999 mls/hr Ceftriaxone Sodium/Dextrose 1 (gm/ Premix) 50 mls @ 100 mls/hr IV ONETIME ONE Stop: 12/05/17 02:03 Last Admin: 12/05/17 02:49 Dose: 100 mls/hr Sodium Chloride (Normal Saline) 1,000 mls @ 999 mls/hr IV STAT [facility] Last Admin: 12/05/17 04:50 Dose: 999 mls/hr Sodium Chloride (Normal Saline) 1,000 mls @ 125 mls/hr IV ASDIRECTED [facility] Last Admin: 12/05/17 18:14 Dose: 125 mls/hr Morphine Sulfate (Morphine) 2 mg IVPUSH ONETIME ONE Stop: 12/05/17 02:49 Last Admin: 12/05/17 02:55 Dose: 2 mg Morphine Sulfate (Morphine) 2 mg IVPUSH ONETIME ONE Stop: 12/05/17 04:47 Last Admin: 12/05/17 04:59 Dose: 2 mg Morphine Sulfate (Morphine) 2 mg IVPUSH ONETIME ONE Stop: 12/05/17 06:38 Last Admin: 12/05/17 06:49 Dose: 2 mg Morphine Sulfate (Morphine) 2 mg IVPUSH ONETIME ONE Stop: 12/05/17 08:03 Last Admin: 12/05/17 08:07 Dose: 2 mg - Exam General: Reports: Alert, Oriented, Cooperative, No Acute Distress Neck: Reports: Supple Lungs: Reports: Clear to Auscultation, Normal Respiratory Effort Cardiovascular: Reports: Regular Rate, Regular Rhythm GI/Abdominal Exam: Normal Bowel Sounds, Soft, Non-Tender, No Organomegaly, No Distention, No Abnormal Bruit, No Mass, Pelvis Stable Back Exam: Reports: Normal Inspection, Full Range of Motion Extremities: Normal Inspection, Normal Range of Motion, Non-Tender, No Pedal Edema, Normal Capillary Refill Neurological: Reports: No New Focal Deficit Psy/Mental Status: Reports: Alert, Normal Affect, Normal Mood
--- NOTE | 2017-12-06 14:12 | CT ---
EXAM DATE: 12/05/17 PATIENT'S AGE: 52 Patient: JAMES HOFFMAN Facility: [place], [place] Site . Site : 1965 Study: CT Abdomen/Pelvis W/O [id number]/28/2018 3:15:42 AM Ordering Physician: Malcom Vail Final Report: INDICATION: LOWER ABDOMINAL PAIN. 52-YEAR-OLD FEMALE. TECHNIQUE: CT abdomen and pelvis without contrast. COMPARISON: None. FINDINGS: [employer] CT images: Moderate stool burden throughout nondilated large bowel. Cholecystectomy surgical clips in right upper abdomen. Lower chest: Unremarkable. Liver: Unremarkable. Spleen: Unremarkable. Pancreas: Unremarkable. Gallbladder and bile ducts: Gallbladder surgically absent. No abnormal biliary dilatation. Adrenal glands: Unremarkable. Kidneys: Unremarkable. No kidney or ureteral stones and no hydronephrosis. GI tract: Unremarkable. Appendix is surgically absent. Moderate amount of stool throughout nondilated large bowel. No abnormal colonic wall thickening. No abnormal mesenteric fat stranding or fluid. Stomach and duodenum follows a normal course. The duodenum crosses midline. No abnormal distension of small bowel loops. Vascular structures: Limited evaluation without IV contrast. Abdominal aorta normal in caliber. Lymph nodes: Unremarkable. Miscellaneous: Unremarkable. No free air or significant free fluid. Pelvic Organs: Unremarkable. Bones: Unremarkable for age. IMPRESSION: 1. No acute abnormality in the abdomen or pelvis. No obstructing renal or ureteral calculi. Moderate amount of stool throughout large bowel, consider underlying constipation. No free fluid or free air. 2. Surgically absent appendix and gallbladder. Dictated by Tavon Dyson MD @ 12/05/2017 3:37:28 AM Please note that all CT scans at this facility use dose modulation, iterative reconstruction, and/or weight-based dosing when appropriate to reduce radiation dose to as low as reasonably achievable. Dictated by: Tavon Dyson MD @ 12/05/2017 03:37:33 (Electronic Signature) Report Signed by Proxy. MTDD
--- NOTE | 2017-12-06 14:13 | CR ---
EXAM DATE: 12/05/17 PATIENT'S AGE: 52 Patient: JAMES HOFFMAN Facility: [place], [place] Site . Site : 1965 Study: XRay Chest [id number]/28/2018 4:55:58 AM Ordering Physician: Malcom Vail Final Report: INDICATION: Abdominal pain, high white blood cell count. TECHNIQUE: Chest radiograph 2 views COMPARISON: None FINDINGS: Cardiovascular and mediastinum: The heart silhouette is normal in size and morphology. The mediastinum is normal in appearance. Lungs and pleural spaces: Both lungs are unremarkable in appearance. No sign of pleural effusion seen. No pneumothorax is identified. Bones and soft tissues: No significant findings. IMPRESSION: 1. No acute cardiopulmonary disease is seen. Dictated by Tavon Dyson MD @ 12/05/2017 5:29:31 AM Dictated by: Tavon Dyson MD @ 12/05/2017 05:29:36 (Electronic Signature) Report Signed by Proxy. [facility]
== END 2017-12-06 08:20 | disposition home or self-care (01) ==
LOC: MW.ED 23:06 → MW.MS 12-05 07:28
PROVIDERS: ADMIT Internal Medicine; ATTEND Internal Medicine
DX: K59.03 Drug induced constipation (principal); E86.0 Dehydration; D72.829 Elevated white blood cell count, unspecified; N17.9 Acute kidney failure, unspecified; E11.9 Type 2 diabetes mellitus without complications; J44.9 Chronic obstructive pulmonary disease, unspecified; F31.9 Bipolar disorder, unspecified; E78.00 Pure hypercholesterolemia, unspecified; K21.9 Gastro-esophageal reflux disease without esophagitis; G89.29 Other chronic pain; M54.41 Lumbago with sciatica, right side; F17.210 Nicotine dependence, cigarettes, uncomplicated; Z90.49 Acquired absence of other specified parts of digestive tract; Z79.4 Long term (current) use of insulin; Z86.19 Personal history of other infectious and parasitic diseases; Z79.899 Other long term (current) drug therapy; Z88.8 Allergy status to other drugs, medicaments and biological substances
CPT/HCPCS: 36415; 71046; 71046-26; 74176; 74176-26; 80048; 80053; 81001; 82962; 83605; 85025; 87040; 87086; 96361; 96365; 96372; 96375; 96376; 99283; 99285-25; A9270-GY; G0378; J0696; J1650; J1815-GY; J2270; J7040